=== PATIENT | female | born 1935 | race Caucasian/White ===

== ENCOUNTER 2022-08-07 17:32 | Inpatient (IN) | payer MEDICARE, BC ==
[2022-08-16 11:17] VITALS: BMI 33.7
[2022-08-16] MEDS ORDERED: Promethazine HCl 25 MG SUPP PR PRN (13:24)
[2022-08-16] MEDS ORDERED: Calcium Carbonate 500 MG ChewTAB PO PRN (13:24)
[2022-08-16] MEDS ORDERED: Acetaminophen 650 MG Suppository PR PRN (13:24)
[2022-08-16] MEDS ORDERED: Senokot S 8.6-50 MG TAB PO PRN (13:24)
[2022-08-16] MEDS ORDERED: Artificial Tear Sol 15 ML BOT EA EYE PRN (13:24)
[2022-08-16] MEDS ORDERED: Bisacodyl 10 MG SUPP PR PRN (13:24)
[2022-08-16] MEDS ORDERED: Ondansetron ODT 4 MG TAB PO PRN (13:24)
[2022-08-16] MEDS ORDERED: Acetaminophen 325 MG TAB PO PRN (13:24)
[2022-08-16] MEDS ORDERED: Sodium Chloride 0.65% Nasal 44 ML BOT EA NARE PRN (13:24)
[2022-08-16] MEDS ORDERED: Guaifenesin DM 100-10/5 ML UDCUP PO PRN (13:24)
[2022-08-16] MEDS ORDERED: Bisacodyl 5 MG TAB PO PRN (13:24)
[2022-08-16] MEDS ORDERED: Cepastat Lozenges 1 LOZ PO PRN (13:24)
[2022-08-16] MEDS ORDERED: Benzonatate 100 MG CAP PO PRN (13:24)
[2022-08-16] MEDS ORDERED: Ondansetron PF 4 MG/2 ML Vial IVP PRN (13:24)
[2022-08-16 14:46] VITALS: TEMP 96.9
[2022-08-16] MEDS: Furosemide 40 MG/4 ML VIAL SLOW IVP SCH (18:43)
[2022-08-16] MEDS: Furosemide 40 MG/4 ML VIAL ONE (18:45)
[2022-08-16] MEDS: cloNIDine 0.1 MG TAB PO SCH (18:53)
[2022-08-16 18:54] VITALS: BP 207/97
[2022-08-16 19:18] LABS: %Monocytes 2.9 % (0.0-10.0); %Neutrophils 78.1 % (42.0-75.0); Hemoglobin 10.3 g/dL (12.0-16.0); Manual Diff?? NO; Mean Corpuscular HGB CONC 31.4 g/dL (32.0-36.0); Mean Corpuscular Hemoglobin 32.7 pg (27.0-31.0); Mean Platelet Volume 11.8 fL (7.4-10.4); Platelet Count 363 thou/uL (130-400); Red Blood Cell (RBC) Count 3.16 mill/uL (4.20-5.40); White Blood Cell (WBC) Count 4.4 thou/uL (4.8-10.8)
[2022-08-16 19:19] LABS: #Basophils 0.1 thou/uL (0.0-0.2); #Lymphocytes 0.7 thou/uL (1.20-3.40); #Monocytes 0.1 thou/uL (0.11-0.59); #Neutrophils 3.4 thou/uL (1.40-6.50); %Basophils 2.4 % (0.0-1.0); %Eosinophils 0.6 % (0.0-10.0)
[2022-08-16 19:27] LABS: ALT (SGPT) 18 U/L (8-55); AST (SGOT) 22 U/L (5-34); Albumin 2.9 g/dL (3.4-4.8); Alkaline Phosphatase 128 U/L (40-110); Anion Gap 17 mmol/L (10-20); BUN (Urea Nitrogen) 14 mg/dL (9.8-20.1); Bilirubin, Total 1.2 mg/dL (0.2-1.2); Calc. Creatinine Clearance 94 mL/min (70-130); Calcium 8.1 mg/dL (7.8-10.44); Carbon Dioxide 23 mmol/L (23-31); Chloride 102 mmol/L (98-107); Estimated GFR 87; Globulin 2.7 g/dL (2.4-3.5); Glucose 136 mg/dL (83-110); Magnesium 1.4 mg/dL (1.6-2.6); Potassium 3.6 mmol/L (3.5-5.1); Protein, Total 5.6 g/dL (5.8-8.1); Sodium 138 mmol/L (136-145)
[2022-08-16 19:45] LABS: CKMB 1.4 ng/mL (0-6.6)
[2022-08-16] MEDS ORDERED: Amlodipine 5 MG TAB PO SCH (21:00)
[2022-08-16] MEDS ORDERED: Famotidine 20 MG TAB PO SCH (21:00)
[2022-08-16] MEDS ORDERED: Apixaban 5 MG TAB PO SCH (21:00)
[2022-08-17] MEDS ORDERED: Amiodarone 200 MG TAB PO SCH (09:00)
[2022-08-17] MEDS ORDERED: Valsartan 80 MG TAB PO SCH (09:00)
== END 2022-08-16 19:15 | disposition short-term general hospital (02) | DRG 947 ==
LOC: NAV ACUTE 08-16 10:35
PROVIDERS: ADMIT Family Medicine; ATTEND Family Medicine
DX: R53.1 Weakness (principal); J96.01 Acute respiratory failure with hypoxia; J90 Pleural effusion, not elsewhere classified; I48.91 Unspecified atrial fibrillation; Z79.01 Long term (current) use of anticoagulants; Z79.899 Other long term (current) drug therapy; Z98.890 Other specified postprocedural states; Z90.49 Acquired absence of other specified parts of digestive tract; Z90.710 Acquired absence of both cervix and uterus
CPT/HCPCS: 71045; 80053; 82553; 83735; 83880; 84484; 85025; 85379; 87040; 87149; J1940

== ENCOUNTER 2022-08-16 19:13 | Emergency (ER) | payer MEDICARE, BC ==
[~2022-08-16 19:13] MED LIST: Iopamidol 370 76% 100 ML VIAL ONE
[2022-08-16] MEDS ORDERED: Acetaminophen 650 MG Suppository ONE (19:22)
[2022-08-16 19:39] LABS: Bilirubin Negative (Negative); Blood, Urine Negative (Negative); Clarity Slightly Cloudy (Clear); Glucose, Urine (Dipstick) Negative (Negative); Ketone, Urine Negative (Negative); Leukocyte Negative (Negative); Nitrite Negative (Negative); Protein, Urine (Dipstick) Negative (Neg-Trace)
[2022-08-16 19:50] LABS: INR-International Normal Ratio 1.1; Prothrombin Time 14.7 sec (12.0-14.7)
[2022-08-16 19:51] LABS: PTT 29.1 sec (22.9-36.1)
[2022-08-16] MEDS ORDERED: Sodium Chloride 0.9% 1,000 ML ONE (20:00)
[2022-08-16] MEDS ORDERED: Sodium Chloride 0.9% 100 ML ONE (20:00)
[2022-08-16] MEDS ORDERED: Cefepime 2 GM VIAL ONE (20:00)
[2022-08-16] MEDS ORDERED: Sodium Chloride 0.9% 500 ML ONE (20:38)
[2022-08-16] MEDS ORDERED: Aspirin Chewable 81 MG TAB ONE (23:02)
[2022-08-16] MEDS ORDERED: Acetaminophen 325 MG TAB ONE (23:22)
[2022-08-16 23:41] LABS: CKMB 1.7 ng/mL (0-6.6)
[2022-08-17] MEDS ORDERED: Heparin 25,000 units/D5W 500 ML ONE (00:13)
[2022-08-17] MEDS ORDERED: Heparin 10,000 UNITS/1 ML VIAL ONE (00:13)
== END 2022-08-17 02:07 | disposition short-term general hospital (02) ==
LOC: NAV ERS 19:13
DX: I21.4 Non-ST elevation (NSTEMI) myocardial infarction (principal); E87.70 Fluid overload, unspecified; R50.9 Fever, unspecified; R09.02 Hypoxemia; E78.5 Hyperlipidemia, unspecified; I11.0 Hypertensive heart disease with heart failure; I50.9 Heart failure, unspecified; Z79.899 Other long term (current) drug therapy
CPT/HCPCS: 51701; 71045; 71275; 74177; 81003; 82553; 83605; 85610; 85730; 87077; 87086; 87186; 93005; 94760; 96365; 96366; 96367; J0692; J1644; J3370; J3490; J7030; J7050; Q9967